=== PATIENT | male | born 1980 | race Caucasian/White ===

== ENCOUNTER 2023-03-26 22:15 | Emergency (ER) | payer OTHER, SELFPAY ==
[2023-03-26 22:17] VITALS: BP 156/79
[2023-03-26] MEDS: ATIVAN 2 MG IM (23:12)
[2023-03-26] MEDS: HALDOL 10 MG IM (23:12)
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
[2023-03-26 23:20] LABS: % Basophils 0.7 % (0-2); % Eosinophils 5.8 % (0-6); % Immature Granulocytes 0.2 % (0-0.5); % Lymphocytes 58.2 % (20.5-51.1); % Monocytes 6.9 % (1.7-9.3); % Neutrophils 28.2 % (42.2-75.2); Absolute Basophils 0.1 10^3/uL (0-0.2); Absolute Eosinophils 0.5 10^3/uL (0-0.7); Absolute Lymphocytes 4.7 10^3/uL (1.2-3.4); Absolute Monocytes 0.6 10^3/uL (0.1-0.6); Absolute Neutrophils 2.3 10^3/uL (1.4-6.5); Hematocrit 48.4 % (39.0-52.0); Hemoglobin 17.7 g/dL (13.0-18.0); Mean Corp Hgb Conc. 36.6 g/dL (33.0-37.0); Mean Corpuscular Hgb 33.5 pg (27.0-31.0); Mean Corpuscular Volume 91.5 fL (80.0-94.0); Mean Platelet Volume 10.2 fL (7.4-10.4); Nucleated Red Blood Cells % 0 % (-); Platelet Count 360 10^3/uL (130-400); Red Blood Cell Count 5.29 10^6/uL (4.70-6.10); Red Cell Dist. Width 12.1 % (11.5-14.5); White Blood Cell Count 8.1 10^3/uL (4.8-10.8)
[2023-03-26 23:21] LABS: Urine Albumin Negative (Neg - Trace); Urine Bilirubin Negative (Negative); Urine Character Clear (Clear); Urine Color Yellow; Urine Glucose Negative (Negative); Urine Ketone Negative (Negative); Urine Leukocyte Negative (Negative); Urine Nitrite Negative (Negative); Urine Occult Blood Negative (Negative); Urine Urobilinogen Negative (Neg - 1+)
[2023-03-26 23:30] LABS: ALT (SGPT) 150 U/L (0-50); AST (SGOT) 212 U/L (17-59); Albumin 5.2 g/dl (3.5-5.0); Alkaline Phosphatase 89 U/L (38-126); Blood Urea Nitrogen 6 mg/dl (9-20); Calcium 9.7 mg/dl (8.4-10.2); Carbon Dioxide 28 mmol/L (22-30); Chloride 104 mmol/L (98-107); Glucose 103 mg/dl (70-99); Potassium 5.2 mmol/L (3.5-5.1); Sodium 143 mmol/L (135-145); Total Bilirubin 0.6 mg/dl (0.2-1.3); Total Protein 8.5 g/dl (6.3-8.2); eGFR > 60.00
[2023-03-27 00:34] LABS: Alcohol 288 mg/dl
[2023-03-27 06:26] VITALS: BP 111/82
--- NOTE | 2023-03-27 08:57 | EDRN ---
[facility] w/ [facility] PCT w/ security nearby. Pt calm and cooperative. No vitals this am as of yet and has not eaten. When awakes will request and offer these. Pt is unrestrained and has not needed orders in for Ativan and Haldol which were ordered
around 6:22 this am when pt was agitated.
--- NOTE | 2023-03-27 09:52 | EDRN ---
Pt is becoming agitated and refusing COVID test.
--- NOTE | 2023-03-27 09:53 | EDRN ---
Pt states 'I ain't taking no COVID test. No way.' Pt has a possible placement pending COVID test.
--- NOTE | 2023-03-27 09:57 | EDRN ---
Pt would not have a temp taken and swinging his arm wide unable to get a BP. Pt was asked about a diet and said 'Yes I want to go home.' Pt refused any diet or ordering any food. I attempted twice to get COVID test and pt said he is going to leave.
--- NOTE | 2023-03-27 10:23 | EDRN ---
With Dr. Nolan, 4 security guards, 3 RNs, and 1 ED PCT, pt swabbed his own nose for the COVID test w/ banging on siderails and showing anger and agression. No meds given. Dr. Rosas said okay to give the prior orders of 10 mg haldol and 2
mg of ativan IM. Dr. Navarro verbally changed haldol to 5 mg IM but meds were not needed to get test done. Pt has calmed down and lying on stretcher at this time. [facility] continues w/ 1 it security manager and [facility] ED PCT.
[2023-03-27 10:43] LABS: COVID-19 Antigen Negative (Negative)
--- NOTE | 2023-03-27 11:08 | EDRN ---
Pt is to go to [facility] and is scheduled to leave at 7:00 PM via [facility].
--- NOTE | 2023-03-27 11:30 | CON.MD ---
Consultation - Medical
-
patient seen chart reviewed. discussed w staff. the patient was 302 committed by police who were called to his trailer. he and his gf had had an arugment. he was initially crying. he made suicidal threats and threats to hurt others. he agreed to
come to [facility] but after arrival became aggressive and threatening and was 302 committed the petition filed by the er physician. he was given im haldol and ativan as he presented a risk to self and others. the patient will give no history this am. he
is very angry and belligerent. labwork was obtained and it shows elevated lft's and bal of 288. he was accepted at [facility] only covid test required which he refused initially but then complied. he has hx of tbi sustained in [place] in his 20's. he has
hx gerd hepatitis and chronic back pain. this information was obtained from the record. patient was not compliant with an interview this am but kept shouting that his civil rights were being violated although i did attempt to explain the
commitment process to him. vital signs w eleated bp 130/96. he is covid negative. transport to [facility] where he has been accepted will be arranged for later today.
--- NOTE | 2023-03-27 12:00 | EDRN ---
Pt requested juice both apple and orange and brought juice. Pt asked if he would like to order food and was about to but when given menu to choose, pt changed his mind at this time. Pt remains calm and cooperative.
--- NOTE | 2023-03-27 12:48 | EDRN ---
Pt is becoming agitated at this time. Pt has not been notified about plan for his admission to [facility]. Pt is having agitated movements. Pt is pulling his hair back and speaking angrily and aggressively. This RN spoke w/ Dr. Rosas and was
given a verbal to administer the meds that were ordered earlier and not adminstered.l
[2023-03-27] MEDS: HALDOL 10 MG IM (13:03)
[2023-03-27] MEDS: ATIVAN 2 MG IM (13:06)
--- NOTE | 2023-03-27 13:08 | EDRN ---
Pt was approached w/ [facility] ED PCT, [place] ED PCT, and security and informed he needs some medication for his agitation. Pt gave his arm willinghly and meds given w/out further aggression. Pt has presently quieted down at this time. on
stretcher, no longer banging on red and bending meal siderails near to point of breaking off. Restraints not re-initiated at this time.
--- NOTE | 2023-03-27 18:33 | EDRN ---
Pt is still sleeping and was just checked by this RN and is breathing. Pt is awaiting discharge transport at this time due at 19:00 ([facility]) to [facility] for inpatient psychiatric care.
== END 2023-03-27 20:02 ==
LOC: EMR 22:15
PROVIDERS: Emergency Medicine; EMERGENCY PHYSICIAN Emergency Medicine; OTHER PHYSICIAN Psychiatry & Neurology Psychiatry
DX: F32.A Depression, unspecified (principal); R45.851 Suicidal ideations; F17.200 Nicotine dependence, unspecified, uncomplicated; Z11.52 Encounter for screening for COVID-19
CPT/HCPCS: 99285; 96372 ×4; 80053; 81003; 82077; 85025; 87811

== ENCOUNTER 2024-08-25 07:39 | Emergency (ER) | payer OTHER, SELFPAY ==
[2024-08-25 07:44] VITALS: BP 120/82
[2024-08-25 07:59] VITALS: BMI 22.2
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
[2024-08-25] MEDS: AUGMENTIN 875 MG/125 MG 1 TABLET PO (09:22)
[2024-08-25] MEDS: ADACEL 0.5 ML IM (09:38)
== END 2024-08-25 09:41 | disposition home or self-care (01) ==
LOC: EMR 07:39
PROVIDERS: EMERGENCY PHYSICIAN Emergency Medicine; FAMILY PHYSICIAN Family Medicine
DX: L08.9 Local infection of the skin and subcutaneous tissue, unspecified (principal); W54.0XXA Bitten by dog, initial encounter; Z23 Encounter for immunization; F17.200 Nicotine dependence, unspecified, uncomplicated; F20.9 Schizophrenia, unspecified; F31.9 Bipolar disorder, unspecified
CPT/HCPCS: 99283; 90471; 73130; 90715